=== PATIENT | male | born 1955 | race Caucasian/White ===

== ENCOUNTER 2016-12-16 11:23 | Day surgery (SDC) | payer OTHER, BC ==
[~2016-12-16] VITALS: Ht 179.1 cm; Wt 81.7 kg
[2016-12-16 12:23] VITALS: BP 115/77
[2016-12-16 17:07] VITALS: BP 130/84
[2016-12-16 17:30] VITALS: BP 156/96
== END 2016-12-16 17:33 | disposition home or self-care (01) ==
LOC: SDC 11:23
PROC: 0QU03JZ Supplement Lumbar Vertebra with Synthetic Substitute, Percutaneous Approach (ICD-10-PCS; principal; 2016-12-16)
DX: M48.56XA Collapsed vertebra, not elsewhere classified, lumbar region, initial encounter for fracture (principal); S32.040A Wedge compression fracture of fourth lumbar vertebra, initial encounter for closed fracture; G89.11 Acute pain due to trauma; M54.5 Low back pain; V49.9XXA Car occupant (driver) (passenger) injured in unspecified traffic accident, initial encounter
CPT/HCPCS: 95938; J0330; J0690; J1100; J1170; J2175; J2405; J3010